=== PATIENT | female | born 1980 ===

== ENCOUNTER 2017-12-04 06:25 | Inpatient (IN) | payer OTHER ==
[2017-12-04 07:35] VITALS: BMI 29.2
[2017-12-04] MEDS ORDERED: FENTANYL/BUPIVACAINE/NS/PF - PCEA - 50 ML DISP.SYRIN EP ONE (08:05)
[2017-12-04] MEDS ORDERED: NALOXONE HCL 0.4 MG/ML VIAL IVPUSH PRN (08:20)
[2017-12-04 08:21] LABS: BASO % 0.5 % (0-2.0); EOS % 0.2 % (0-4.5); HEMATOCRIT 35.1 % (32.4-45.2); HEMOGLOBIN 11.8 GM/dL (10.7-15.3); LYMPH % 8.1 % (8-40); MCH 28.5 pg (25.7-33.7); MCHC 33.7 g/dl (32.0-36.0); MEAN CELL VOLUME 84.5 fl (80-96); MEAN PLT VOLUME 8.1 fl (7.5-11.1); MONO % 6.2 % (3.8-10.2); PLATELET COUNT 184 K/MM3 (134-434); RBC 4.15 M/mm3 (3.60-5.2); RDW 15.1 % (11.6-15.6); WHITE BLOOD COUNT 12.7 K/mm3 (4.0-10.0)
[2017-12-04] MEDS ORDERED: LIDO 2%/EPI 1:200000 PRESRVFRE (20 ML SDVIAL) ONE (08:21)
[2017-12-04] MEDS ORDERED: FENTANYL/BUPIVACAINE/NS/PF - PCEA - 50 ML DISP.SYRIN EP SCH (08:30)
[2017-12-04 08:44] LABS: ANION GAP 11 (8-16); BLOOD UREA NITROGEN 11 mg/dL (7-18); CALCIUM 8.2 mg/dL (8.5-10.1); CHLORIDE 106 mmol/L (98-107); CO2 21 mmol/L (21-32); CREATININE 0.4 mg/dL (0.55-1.02); GLUCOSE,RANDOM 93 mg/dL (74-106); POTASSIUM 3.8 mmol/L (3.5-5.1); PROTHROMBIN TIME (PATIENT) 11.3 SEC (9.7-13.0); SODIUM 138 mmol/L (136-145)
[2017-12-04] MEDS ORDERED: ELECTROLYTE-148 SOLN 1,000 ML IV SCH (08:45)
[2017-12-04 08:46] LABS: ACTIVATED PTT 28.7 SECONDS (25.2-36.5)
[2017-12-04] MEDS ORDERED: TUBERCULIN PPD 5 TU/0.1ML SYRINGE (IN PATIENT USE ONLY) ID ONE (09:15)
--- NOTE | 2017-12-04 10:35 | HP ---
Past Medical History - Admission History of Present Illness: 37 yo @ 40 0/7 wks by first trimester ultrasound, EDC 12/04/2017 complicated by: 1. AMA - [id number] WNL Patient presents with chief complaint of contractions. She was examined and found to be 5 cm. She reports movement, denies leakage of fluid or vaginal bleeding History Source: Patient Limitations to Obtaining History: No Limitations - Past Medical History Cardiovascular: No: HTN Pulmonary: No: Asthma Gastrointestinal: Yes: Other (gastric ulcers, s/p tx for h pylori) ...: 4 ...Para: 2 ...Term: 2 ...: 0 ...Spon : 1 ...Induced : 0 ...Multiple Gestation: 0 ...LMP: 03/02/17 ... Weeks Gestation by Dates: 39.4 ...EDC by Dates: 12/07/17 ...EDC by Sono: 12/04/17 - Past Surgical History Hx Myomectomy: No Hx Transabdominal Cerclage: No Additional Surgical History: Laparoscopic right paratubal cyst removal. Laparoscopic appendectomy. Endoscopy x 2 - Smoking History Smoking history: Never smoked Have you smoked in the past 12 months: No - Alcohol/Substance Use Hx Alcohol Use: No Home Medications - Allergies Allergies/Adverse Reactions: Allergies Allergy/AdvReac Type Severity Reaction Status Date / Time codeine AdvReac Intermediate Hives Verified 12/04/17 00:10 - Home Medications Home Medications: Ambulatory Orders Tablet 1 tablet PO DAILY 12/04/17 Family Disease History - Family Disease History Family History: Denies Review of Systems - Review of Systems Constitutional: reports: No Symptoms Cardiovascular: reports: No Symptoms Respiratory: reports: No Symptoms Gastrointestinal: reports: No Symptoms Genitourinary: reports: No Symptoms Musculoskeletal: reports: No Symptoms Integumentary: reports: No Symptoms Neurological: reports: No Symptoms Hematology/Lymphatic: reports: No Symptoms Physical Exam - Maternity Vital Signs: Vital Signs Temperature 98.5 F 12/04/17 09:57 Pulse Rate 81 12/04/17 09:40 Respiratory Rate 20 12/04/17 09:40 Blood Pressure 109/61 12/04/17 09:40 O2 Sat by Pulse Oximetry (%) 100 12/04/17 09:40 Constitutional: Yes: Well Nourished, No Distress, Calm Cardiovascular: Yes: Regular Rate and Rhythm Lungs: Clear to auscultation - Abdominal Exam/OB Number of Fetuses: Single Presentation: Vertex Contractions: Yes Regularity: Regular Intensity: Moderate Category: I Accelerations: Non-Uniform Decelerations: None - Vaginal Exam/OB Dilatation (cm): 7 Effacement (%): 100 Amniotic Membrane Status: Ruptured Amniotic Fluid: Yes: Clear Station: -2 - Physical Exam Edema: No Psychiatric: Yes: Alert, Oriented - Labs Lab Results: CBC, BMP 12/04/17 08:15 12/04/17 08:15 PNL: B positive, antibody negative; RPR NR; HBS Ag neg; HCV neg; HG Elizabeth AA; HIV neg; CF/SMA/Fx neg; GCT WNL; Parvo Immune; Rubella Immune; Varicella Immune; GBS neg Hemorrhage Risk Assessment - Risk Factors Medium Risk Factors: Yes: None High Risk Factors: Yes: None Risk Score: 1 Risk Level: Medium Risk Assessment/Plan 37 yo @ 40 0/7 wks, active labor 1. Admit to L&D, consents reviewed and signed 2. Routine labs reviewed 3. GBS negative 4. Desires epidural 5. Will proceed with expectant management
[2017-12-04] MEDS ORDERED: OXYTOCIN 20 UNITS in 0.9% NS 20 UNIT/1,000 ML INFUS.BAG IV ONE ×2 (12:24→14:49)
[2017-12-04] MEDS ORDERED: LIDOCAINE HCL 1% PRESERVATIVE FREE - 30ML VIAL ONE (12:24)
--- NOTE | 2017-12-04 13:35 | PN ---
Delivery - Delivery Vaginal Delivery: Shoulder/Difficult Maneuvers: Mc Henrique's, Suprapubic pressure, Delivery of Posterior Arm Episiotomy/Laceration: None EBL (cc): 400 Delivery, Single - Stages of Labor Date 1st Stage Initiatied: 12/03/17 Time 1st Stage Initiated: 20:00 Date 2nd Stage Initiated: 12/04/17 Time 2nd Stage Initiated: 13:00 Date of Delivery: 12/04/17 Time of Delivery: 13:20 Date Placenta Delivered: 12/04/17 Time Placenta Delivered: 13:27 Placenta: Yes: Spontaneous - Condition of Gender: Female Position: Left, OA Total Hours ROM (Hrs/Mins): 3 hours, 57 minutes - 1 Minute Total Score: 9 5 Minutes Total Score: 9 - Feeding Plan Initial Plan: Elected not to breastfeed exclusively throughout hospitalization Remarks - Remarks Remarks: Patient progressed to fully dilated and at 1320 via delivered a viable female in APRIL position, APGARs 9,9. Weight and length unknown at this time. Head delivered spontaneously at 1319, shoulders noted to be difficult to deliver. Time noted and called attention to Shoulder Dystocia. Nursing staff made aware. Patient was placed in Mc Henrique's position, suprapubic pressure applied. Left posterior arm delivered with successful delivery of anterior right shoulder and body without difficulty. with spontaneous cry, nose and mouth was bulb suctioned, cord was clamped and cut and was handed to waiting nursing staff. Perineum and vagina examined, a no lacerations were noted. Placenta was delivered spontaneously and intact. 20 units of pitocin in 1 L IVF was given. All counts correct x 2. Mother and infant stable in LDR. EBL 400cc.
[2017-12-04] MEDS ORDERED: METHYLERGONOVINE MALEATE 0.2 MG/1 ML AMP IM PRN (13:42)
[2017-12-04] MEDS ORDERED: IBUPROFEN 600 MG TABLET (FP) PO PRN (13:42)
[2017-12-04] MEDS ORDERED: BENZOCAINE 28 GM HEMORRHOIDAL OINTMENT TP PRN (13:42)
[2017-12-04] MEDS ORDERED: BISACODYL 10 MG SUPP.RECT RC PRN (13:42)
[2017-12-04] MEDS ORDERED: WITCH HAZEL 50% (TUCKS) 40 PAD/JAR PAD TP PRN (13:42)
[2017-12-04] MEDS ORDERED: oxyCODONE HCL 5 MG TABLET PO PRN (13:42)
[2017-12-04] MEDS ORDERED: BENZOCAINE 20% 57 GM BOTTLE TP PRN (13:42)
[2017-12-04] MEDS ORDERED: OXYTOCIN 20 UNITS in 0.9% NS 20 UNIT/1,000 ML INFUS.BAG IV SCH (13:45)
[2017-12-04 14:02] LABS: ARTERIAL BLD GAS O2 SATURATION 21.7 % (90-98.9); ARTERIAL BLOOD GAS BASE EXCESS -3.9 meq/l (-2-2); ARTERIAL BLOOD GAS PCO2 54.2 mmHg (35-45); ARTERIAL BLOOD GAS PO2 15.7 mmHg (80-100); ARTERIAL BLOOD GAS pH 7.26 (7.35-7.45)
[2017-12-04 14:10] LABS: VENOUS PC02 41.1 mmHg (38-52); VENOUS PH 7.36 (7.32-7.42)
[2017-12-04] MEDS: ACETAMINOPHEN 325 MG TABLET (FP) PO PRN ×2 (15:49→19:18)
--- NOTE | 2017-12-05 00:54 | PN ---
Post Progress Note - Subjective Subjective: Patient without acute complaints. Reports tolerating oral intake without nausea or vomiting. Ambulating without dizziness. Denies fevers or chills. Pain well controlled with oral pain medication. without difficulty. Passing flatus. Post Day: 1 Type of Delivery: Vital Signs: Vital Signs Temperature 98.5 F 12/04/17 22:00 Pulse Rate 71 12/04/17 22:00 Respiratory Rate 18 12/04/17 22:00 Blood Pressure 107/59 12/04/17 22:00 O2 Sat by Pulse Oximetry (%) 100 12/04/17 12:10 Breast Exam: Yes: Engorged Uterus: Yes: Fundus Firm, Fundus below umbilicus Abdomen/GI: Yes: Abdomen soft, Passing flatus, Tolerating PO. No: Abdominal Distention, Tender Lochia: Yes: Rubra Lochia, amount: Small Extremities: Yes: Calves non-tender. No: Edema Perineum: Yes: Intact Activity: Ambulating - Labs Labs: CBC WBC 12.7 K/mm3 (4.0-10.0) H 12/04/17 08:15 RBC 4.15 M/mm3 (3.60-5.2) 12/04/17 08:15 Hgb 11.8 GM/dL (10.7-15.3) 12/04/17 08:15 Hct 35.1 % (32.4-45.2) 12/04/17 08:15 MCV 84.5 fl (80-96) 12/04/17 08:15 MCH 28.5 pg (25.7-33.7) 12/04/17 08:15 MCHC 33.7 g/dl (32.0-36.0) 12/04/17 08:15 RDW 15.1 % (11.6-15.6) 12/04/17 08:15 Plt Count 184 K/MM3 (134-434) 12/04/17 08:15 MPV 8.1 fl (7.5-11.1) 12/04/17 08:15 Absolute Neuts (auto) 10.8 # 12/04/17 08:15 Neutrophils % 85.0 % (42.8-82.8) H 12/04/17 08:15 Lymphocytes % 8.1 % (8-40) 12/04/17 08:15 Monocytes % 6.2 % (3.8-10.2) 12/04/17 08:15 Eosinophils % 0.2 % (0-4.5) 12/04/17 08:15 Basophils % 0.5 % (0-2.0) 12/04/17 08:15 Nucleated RBC % 0 % (0-0) 12/04/17 08:15 Assessment/Plan 27 yo PPD #1 s/p , afebrile, vital signs stable, doing well 1. Continue routine care. 2. Follow up AM CBC 3. Rh positive status, no rhogam indicated. 4. Encourage ambulation 5. Continue oral pain medication 6. Anticipate discharge home day #2
--- NOTE | 2017-12-05 00:56 | DS ---
Physical Exam-[employer] Vital Signs: Vital Signs Temperature 98.5 F 12/04/17 22:00 Pulse Rate 71 12/04/17 22:00 Respiratory Rate 18 12/04/17 22:00 Blood Pressure 107/59 12/04/17 22:00 O2 Sat by Pulse Oximetry (%) 100 12/04/17 12:10 Labs: CBC, BMP 12/04/17 08:15 12/04/17 08:15 Delivery - Delivery Vaginal Delivery: Shoulder/Difficult Maneuvers: Mc Henrique's, Suprapubic pressure, Delivery of Posterior Arm Type of Anesthesia: Epidural Episiotomy/Laceration: None EBL (cc): 400 Delivery, Single - Stages of Labor Date 1st Stage Initiatied: 12/03/17 Time 1st Stage Initiated: 20:00 Date 2nd Stage Initiated: 12/04/17 Time 2nd Stage Initiated: 13:00 Date of Delivery: 12/04/17 Time of Delivery: 13:20 Time Placenta Delivered: 13:27 Placenta: Yes: Spontaneous - Condition of Infant General Assignment Reporter/Hedis Registered Nurse Rn Present: No Gender: Female Weight: 8 lb 8 oz Position: Left, OA Total Hours ROM (Hrs/Mins): 3 hours, 57 minutes - 1 Minute Total Score: 9 5 Minutes Total Score: 9 - [place] Feeding Plan Initial Plan: Elected not to breastfeed exclusively throughout hospitalization Discharge Summary Reason For Visit: LABOR Current Active Problems Normal vaginal delivery (Acute) Shoulder dystocia during labor and delivery (Acute) Procedures: Principal: vaginal delivery Hospital Course: Patient was admitted in active labor, progressed to deliver via Shoulder dystocia encountered, successful delivery of viable female infant PPD # 1 patient ambulated, voiding, passing gas, tolerating oral intake and with adequate pain control. Noted to have mild asymptomatic anemia She fulfilled all criteria for discharge PPD #2 Condition: Good - Instructions Diet, Activity, Other Instructions: Physical activity Resume your normal everyday activity as tolerated no heavy lifting or exercise until seen by your surgeon. You may walk unlimited brenda of and climb stairs. You may resume driving the car when you feel safe and comfortable behind the wheel. No sexual activity as instructed. Diet There are no dietary restrictions. Eat healthy, high-fiber foods. Drink 6 to 8 glasses of liquid each day. This will assist in keeping your bowels are regular. Pain management You may take Tylenol or acetaminophen or Ibuprofen (for example, Motrin, Advil etc.) from my pain prescription medication is ordered should be taken as prescribed for moderate to severe pain. Call MD for any of the following: Severe pain not relieved by medication Fever of 101 or higher Excessive bleeding or drainage on dressing Inability to urinate return to office in 6 weeks. call for appointment. Referrals: Na Goetz MD [Primary Care Provider] - Disposition: HOME - Home Medications Comprehensive Discharge Medication List: Ambulatory Orders Tablet 1 tablet PO DAILY 12/04/17
[2017-12-05] MEDS: ACETAMINOPHEN 325 MG TABLET (FP) PO PRN ×4 (06:15→21:43)
[2017-12-05 08:16] LABS: BASO % 0.2 % (0-2.0); EOS % 0.8 % (0-4.5); HEMOGLOBIN 10.8 GM/dL (10.7-15.3); LYMPH % 15.9 % (8-40); MCH 28.8 pg (25.7-33.7); MCHC 33.7 g/dl (32.0-36.0); MEAN CELL VOLUME 85.4 fl (80-96); MEAN PLT VOLUME 8.2 fl (7.5-11.1); NEUT % 75.1 % (42.8-82.8); PLATELET COUNT 152 K/MM3 (134-434); RBC 3.75 M/mm3 (3.60-5.2); RDW 15.3 % (11.6-15.6)
[2017-12-05] MEDS: PRENATAL VITAMINS W/ FOLIC ACID TABLET (FP) PO SCH (09:07)
[2017-12-05] MEDS ORDERED: SENNOSIDES/DOCUSATE COMBO (SENNA PLUS) TABLET (UD) PO PRN (22:00)
[2017-12-06] MEDS: ACETAMINOPHEN 325 MG TABLET (FP) PO PRN ×2 (06:03→11:56)
[2017-12-06 08:35] VITALS: BP 113/68; PULSE 75; TEMP 98.3
--- NOTE | 2017-12-06 08:36 | PN ---
Progress Note (short form) - Note Progress Note: ppd 2 no c/o no exces vaginal bleeding , voids ok CBC, BMP 12/05/17 06:15 12/04/17 08:15 Last Vital Signs Temp Pulse Resp BP Pulse Ox 98.3 F 75 20 113/68 100 12/06/17 08:32 12/06/17 08:32 12/06/17 08:32 12/06/17 08:32 12/04/17 12:10 uterus firm, non tender lochia mild no calf tenderness plan d/c home, rto 4 weeks
[2017-12-06] MEDS: PRENATAL VITAMINS W/ FOLIC ACID TABLET (FP) PO SCH (09:24)
== END 2017-12-06 12:20 | disposition home or self-care (01) | DRG 775 ==
LOC: JDEL 06:25 → JLDR 07:05 → J3W 15:43
PROVIDERS: ADMIT Obstetrics & Gynecology; ATTEND Obstetrics & Gynecology
PROC: 10E0XZZ Delivery of Products of Conception, External Approach (ICD-10-PCS; principal; 2017-12-04)
DX: O48.0 Post-term pregnancy (principal); Z3A.40 40 weeks gestation of pregnancy; Z37.0 Single live birth; O66.0 Obstructed labor due to shoulder dystocia
CPT/HCPCS: 36415; 36600; 59409; 71046-TC-FY; 80048; 82803; 85025; 85610; 85730; 86593; 86850; 86900; 86901; 87389